=== PATIENT | female | born 1970 ===

== ENCOUNTER 2021-07-17 08:40 | Day surgery (SDC) | payer OTHER ==
[~2021-07-17 08:40] MED LIST: PAXIL30 MG PO
[2021-07-17] MEDS ORDERED: PERCOCET 5-3251 EACH PO (14:03)
== END 2021-07-17 16:35 | disposition home or self-care (01) ==
LOC: CIR.AMB 08:40
PROVIDERS: ATTEND Obstetrics & Gynecology Gynecology
DX: D27.0 Benign neoplasm of right ovary (principal)

== ENCOUNTER 2023-02-04 05:40 | Day surgery (SDC) | payer OTHER ==
[~2023-02-04] VITALS: Ht 177.8 cm; Wt 101.2 kg
[~2023-02-04 05:40] MED LIST changes: +PERCOCET 5-3251 EACH PO; +WELLBUTRIN SR150 MG PO
[2023-02-04] MEDS ORDERED: IBU600 MG PO (09:31)
== END 2023-02-04 13:40 | disposition home or self-care (01) ==
LOC: CIR.AMB 05:40 → EDBD 07:15 → CIR.AMB 07:15
PROVIDERS: ATTEND Obstetrics & Gynecology Gynecology
DX: N85.8 Other specified noninflammatory disorders of uterus (principal); N95.0 Postmenopausal bleeding; Z20.822 Contact with and (suspected) exposure to COVID-19; F41.9 Anxiety disorder, unspecified; F32.A Depression, unspecified